=== PATIENT | female | born 1935 | race Asian ===

== ENCOUNTER 2017-08-26 14:43 | Emergency (ER) | payer OTHER ==
[~2017-08-26] VITALS: Ht 149.9 cm; Wt 52.3 kg
[2017-08-26 14:57] LABS: GLUCOSE,POINT OF CARE 69 MG/DL (70-110)
[2017-08-26 15:39] LABS: BASOPHILS % (AUTO) 0.4 % (0.0-2.0); EOSINOPHILS % (AUTO) 4.2 % (1.0-6.0); HEMATOCRIT 35.4 % (36-46); HEMOGLOBIN 11.5 g/dL (12.0-16.0); LYMPHOCYTES # (AUTO) 1.5 K/uL (1.0-4.8); LYMPHOCYTES % (AUTO) 30.8 % (22.0-44.0); MEAN CORPUSCULAR HEMOGLOBIN 29.8 pg (26.0-34.0); MEAN CORPUSCULAR HGB CONC 32.5 G/dL (31.0-37.0); MEAN CORPUSCULAR VOLUME 92 fL (80-100); MONOCYTES # (AUTO) 0.7 K/uL (0.1-1.0); MONOCYTES % (AUTO) 14.8 % (2.0-9.0); NEUTROPHILS # (AUTO) 2.5 K/uL (1.8-7.7); NEUTROPHILS % (AUTO) 49.8 % (40.0-70.0); PLATELET COUNT (AUTO) 150 K/uL (150-450); RED BLOOD CELL COUNT(AUTO) 3.86 MIL/uL (4.00-5.20); RED CELL DISTRIBUTION WIDTH 16.5 % (11.5-14.5)
[2017-08-26 15:53] LABS: CALCIUM, TOTAL 8.1 mg/dL (8.8-10.5); CREATININE 8.01 mg/dL (0.60-1.30); POTASSIUM 5.1 mmol/L (3.5-5.1)
[2017-08-26] MEDS ORDERED: LIDOCAINE HCL/PF 1% 30 ML VIAL ONE (15:53)
[2017-08-26] MEDS ORDERED: HEPARIN SODIUM 1000 UNITS/NS 500 ML ONE (15:53)
[2017-08-26 16:03] LABS: PROTHROMBIN TIME 10.4 SEC (9.4-11.6)
[2017-08-26 16:04] LABS: ALBUMIN 3.6 g/dL (3.4-5.0); BILIRUBIN,TOTAL 0.3 mg/dL (0.1-1.0); TOTAL PROTEIN, SERUM 7.1 g/dL (6.4-8.2)
[2017-08-26] MEDS ORDERED: IOHEXOL 240 MG/ML 50 ML VIAL ONE (16:09)
[2017-08-26] MEDS ORDERED: HEPARIN SODIUM,PORCINE 1,000 UNITS/ML 10 ML VIAL ONE (16:20)
[2017-08-26] MEDS ORDERED: ALTEPLASE 2 MG/VIAL IVCATH ONE (16:30)
[2017-08-26] MEDS ORDERED: MIDAZOLAM HCL 2 MG/2 ML VIAL ONE (17:10)
[2017-08-26] MEDS ORDERED: FentaNYL CITRATE-PF 100 MCG/2 ML VIAL ONE (17:11)
[2017-08-26] MEDS ORDERED: NALOXONE HCL 0.4 MG/ML VIAL ONE (17:11)
[2017-08-26 19:39] VITALS: BP 171/75
== END 2017-08-26 19:45 | disposition home or self-care (01) ==
LOC: EMS 14:47
DX: I12.0 Hypertensive chronic kidney disease with stage 5 chronic kidney disease or end stage renal disease (principal); E11.22 Type 2 diabetes mellitus with diabetic chronic kidney disease; N18.6 End stage renal disease; Z99.2 Dependence on renal dialysis
CPT/HCPCS: 36415; 36906; 37195; 75774; 80053; 82962; 85025; 85610; 93005; 99285; C1725; C1769 ×2; C1874; J1644 ×2; J2997; J3490; Q9966; 36870; J2250; J2310; J3010